=== PATIENT | male | born 1985 | race Caucasian/White ===

== ENCOUNTER 2019-03-21 13:50 | Day surgery (SDC) | payer OTHER ==
[2019-03-21] MEDS ORDERED: Ketorolac 30 MG/ML SDV IVPUSH ONE (14:14)
[2019-03-21] MEDS ORDERED: Sodium Chloride 0.9% 1,000 ML IV ONE (14:14)
--- NOTE | 2019-03-21 14:21 | EDM.PDOC ---
ED HPI GENERAL MEDICAL PROBLEM - General Chief Complaint: Abdominal Pain Stated Complaint: STOMACH PAIN Time Seen by Provider: 03/21/19 13:53 Source of Information: Reports: Patient History Limitations: Reports: No Limitations - History of Present Illness INITIAL COMMENTS - FREE TEXT/NARRATIVE: HISTORY AND PHYSICAL: History of present illness: Patient is a 33-year-old male presents to the ED today with concern of right lower quadrant pain that started late last night. Patient states his pain is a constant 6 out of 10 and is not worsening but also not improving. Patient states that the pain kept him up last night and he was unable to sleep. Patient states he has eaten some today but has noticed a decrease in appetite and has not been able to eat what he would normally eat. Patient expresses some nausea but states he has not vomited. Patient states his last bowel movement was yesterday and was normal for him. Patient denies any other symptoms or concerns at this time. Patient denies any abdominal surgery or any other health history. Patient denies fever, chills, chest pain, shortness of breath, or cough. Denies headache, neck stiff ness, change in vision, syncope, or near syncope. Denies vomiting, diarrhea, constipation, or dysuria. Has not noted any blood in urine or stool. Review of systems: As per history of present illness and below otherwise all systems reviewed and negative. Past medical history: As per history of present illness and as reviewed below otherwise noncontributory. Surgical history: As per history of present illness and as reviewed below otherwise noncontributory. Social history: See social history for further information Family history: As per history of present illness and as reviewed below otherwise noncontributory. Physical exam: General: Patient is alert, oriented, and in no acute distress. Patient laying comfortably on exam table. HEENT: Atraumatic, normocephalic, pupils equal and reactive bilaterally, negative for conjunctival pallor or scleral icterus, mucous membranes dry, TMs normal bilaterally, throat clear, neck supple, nontender, trachea midline. No drooling or trismus noted. No meningeal signs. No hot potato voice noted. Lungs: Clear to auscultation, breath sounds equal bilaterally, chest nontender. Heart: S1S2, regular rate and rhythm without overt murmur Abdomen: Soft, nondistended. Moderate to severe pain with palpation of the right lower quadrant with guarding. Positive rebound. Negative for masses or hepatosplenomegaly. Negative for costovertebral tenderness. Pelvis: Stable nontender. Genitourinary: Deferred. Rectal: Deferred. Skin: Intact, warm, dry. No lesions or rashes noted. Extremities: Atraumatic, negative for cords or calf pain. Neurovascular unremarkable. Neuro: Awake, alert, oriented. Cranial nerves II through XII unremarkable. Cerebellum unremarkable. Motor and sensory unremarkable throughout. Exam nonfocal. Notes: Dr. Owens, general surgery, consulted on patient and will take patient to the operating room. Voices understanding and is agreeable to plan of care. Denies any further questions or concerns at this time. Diagnostics: CBC, CMP, UA, lipase, abdominal pelvic CT Therapeutics: Toradol, saline Impression: Acute appendicitis Plan: 1. Transfer to the operating room to Dr. Owens. Definitive disposition and diagnosis as appropriate pending reevaluation and review of above. Right Lower Abdominal Pain Score (Numeric/FACES): 4 - Related Data Allergies Allergy/AdvReac Type Severity Reaction Status Date / Time Penicillins Allergy Rash Verified 03/21/19 14:01 Home Meds: Home Meds . [No Known Home Meds] 03/21/19 [History] Past Medical History - Past Health History Medical/Surgical History: Denies Medical/Surgical History - Infectious Disease History Infectious Disease History: Reports: None Social & Family History - Tobacco Use Smoking Status *Q: Never Smoker Second Hand Smoke Exposure: No - Caffeine Use Caffeine Use: Reports: Coffee - Recreational Drug Use Recreational Drug Use: No ED ROS GENERAL - Review of Systems Review Of Systems: ROS reveals no pertinent complaints other than HPI. ED EXAM, GENERAL - Physical Exam Exam: See Below (See dictation) Course - Vital Signs Last Recorded V/S: Last Vital Signs Temp 36.3 C 03/21/19 14:01 Pulse 76 03/21/19 16:05 Resp 18 03/21/19 16:05 BP 148/94 H 03/21/19 16:05 Pulse Ox 99 03/21/19 16:05 - Orders/Labs/Meds Orders: Active Orders 24 hr Category Date Time Status Lactated Ringers [Ringers, Lactated] 1,000 ml Med 03/21/19 16:45 Active IV ASDIRECTED cefTRIAXone [Rocephin] 1 gm Med 03/21/19 16:40 Active Sodium Chloride 0.9% [Normal Saline] 50 ml IV ONETIME Medication Orders Ceftriaxone Sodium 1 gm/ (Sodium Chloride) 50 mls @ 200 mls/hr IV ONETIME ONE Stop: 03/21/19 16:54 Lactated Ringer's (Ringers, Lactated) 1,000 mls @ 150 mls/hr IV ASDIRECTED [facility] Labs: Laboratory Tests 03/21/19 03/21/19 03/21/19 Range/Units 14:25 14:25 14:25 WBC 11.47 H (4.0-11.0) K/uL RBC 4.76 (4.50-5.90) M/uL Hgb 15.8 (13.0-17.0) g/dL Hct 44.5 (38.0-50.0) % MCV 93.5 (80.0-98.0) fL MCH 33.2 H (27.0-32.0) pg MCHC 35.5 (31.0-37.0) g/dL RDW Std Deviation 40.4 (28.0-62.0) fl RDW Coeff of [place] 12 (11.0-15.0) % Plt Count 170 (150-400) K/uL MPV 10.50 (7.40-12.00) fL Neut % (Auto) 67.6 (48.0-80.0) % Lymph % (Auto) 21.2 (16.0-40.0) % [place] % (Auto) 8.5 (0.0-15.0) % Eos % (Auto) 2.4 (0.0-7.0) % Baso % (Auto) 0.3 (0.0-1.5) % Neut # (Auto) 7.8 H (1.4-5.7) K/uL Lymph # (Auto) 2.4 (0.6-2.4) K/uL [place] # (Auto) 1.0 H (0.0-0.8) K/uL Eos # (Auto) 0.3 (0.0-0.7) K/uL Baso # (Auto) 0.0 (0.0-0.1) K/uL Sodium 141 (136-148) mmol/L Potassium 3.8 (3.5-5.1) mmol/L Chloride 104 (98-107) mmol/L Carbon Dioxide 28.3 (21.0-32.0) mmol/L BUN 14 (7.0-18.0) mg/dL Creatinine 1.4 H (0.8-1.3) mg/dL Est Cr Clr Drug Dosing 75.05 mL/min Estimated GFR (MDRD) 58.4 ml/min Glucose 100 (74-106) mg/dL Calcium 9.4 (8.5-10.1) mg/dL Total Bilirubin 0.8 (0.2-1.0) mg/dL AST 33 (15-37) IU/L ALT 90 H (14-63) IU/L Alkaline Phosphatase 64 (46-116) U/L Total Protein 8.4 H (6.4-8.2) g/dL Albumin 4.3 (3.4-5.0) g/dL Globulin 4.1 H (2.6-4.0) g/dL Albumin/Globulin Ratio 1.1 (0.9-1.6) Lipase 169 (73-393) U/L Urine Color YELLOW Urine Appearance CLEAR Urine pH 8.0 (5.0-8.0) Ur Specific [place] 1.010 (1.001-1.035) Urine Protein NEGATIVE (NEGATIVE) mg/dL Urine Glucose (UA) NEGATIVE (NEGATIVE) mg/dL Urine Ketones NEGATIVE (NEGATIVE) mg/dL Urine Occult Blood NEGATIVE (NEGATIVE) Urine Nitrite NEGATIVE (NEGATIVE) Urine Bilirubin NEGATIVE (NEGATIVE) Urine Urobilinogen 0.2 (<2.0) EU/dL Ur Leukocyte Esterase NEGATIVE (NEGATIVE) Meds: Medications Generic Name Dose Route Start Last Admin Trade Name Freq PRN Reason Stop Dose Admin Ceftriaxone Sodium 1 gm/ 50 mls @ 200 mls/hr 03/21/19 16:40 Sodium Chloride IV 03/21/19 16:54 ONETIME ONE Lactated Ringer's 1,000 mls @ 150 mls/hr 03/21/19 16:45 Ringers, Lactated IV ASDIRECTED CHRYSTAL Discontinued Medications Generic Name Dose Route Start Last Admin Trade Name Freq PRN Reason Stop Dose Admin Sodium Chloride 1,000 mls @ 999 mls/hr 03/21/19 14:14 03/21/19 14:31 Normal Saline IV 03/21/19 15:14 999 mls/hr BOLUS ONE Administration Iopamidol 100 ml 03/21/19 15:37 03/21/19 15:38 Isovue Multipack-370 (76%) IVPUSH 03/21/19 15:38 100 ml ONETIME ONE Administration Ketorolac Tromethamine 30 mg 03/21/19 14:14 03/21/19 14:31 Toradol IVPUSH 03/21/19 14:15 30 mg ONETIME ONE Administration Departure - Departure Time of Disposition: 16:47 Disposition: Still A Patient 30 Clinical Impression: Acute appendicitis Qualifiers: Acute appendicitis type: unspecified acute appendicitis type Qualified Code(s) : K35.80 - Unspecified acute appendicitis - Discharge Information
[2019-03-21 15:02] LABS: CARBON DIOXIDE,CO2 28.3 mmol/L (21.0-32.0); POTASSIUM,K 3.8 mmol/L (3.5-5.1)
[2019-03-21] MEDS ORDERED: Iopamidol 755 MG/ML 200 ML Multipack Bottle IVPUSH ONE (15:37)
--- NOTE | 2019-03-21 15:55 | CT ---
Indication: Right lower quadrant pain. Technique: Multiple contiguous axial images were obtained from the lung bases to the symphysis pubis after the intravenous administration of 100 milliliters Isovue 370. Please note that all CT scans at this facility use dose modulation, iterative reconstruction, and/or weight-based dosing when appropriate to reduce radiation dose to as low as reasonably achievable. Comparison: None Findings: The lung bases are clear. The heart is normal size. No pericardial effusion is identified. The liver, gallbladder, spleen, pancreas, adrenals, and kidneys are normal. No intrahepatic biliary ductal dilatation is identified. No hydronephrosis is seen. In the pelvis, the urinary bladder is normal. The prostate gland is normal. The small and large bowel are normal in caliber. The appendix is dilated, measuring 8 mm in size. Periappendiceal fat stranding is identified. No abscess or free air is identified. No free air or free fluid is identified within the abdomen or pelvis. The aorta is normal in caliber. No lytic or blastic lesions of the spine are seen. Impression: Findings consistent with appendicitis. No free air or abscess identified. These findings were discussed with Dr. Louie at the time of this dictation. Please note that all CT scans at this facility use dose modulation, iterative reconstruction, and/or weight-based dosing when appropriate to reduce radiation dose to as low as reasonably achievable. Dictated by Roro Edward MD @ Mar 21 2019 3:42PM Signed by Dr. Roro Edward @ Mar 21 2019 3:55PM
[2019-03-21] MEDS ORDERED: cefTRIAXone 1 GM in Sodium Chloride 0.9% 50 ML IV ONE (16:40)
[2019-03-21] MEDS ORDERED: Lactated Ringers 1,000 ML IV SCH ×2 (16:45→19:30)
[2019-03-21] MEDS ORDERED: cefTRIAXone 1 GM in Premix Bag 1 BAG IV ONE (16:47)
--- NOTE | 2019-03-21 17:07 | PCM.SN ---
- Free Text/Narrative Note: pt seen, chart reviewed, adm h/p dictated [id number]; acute appendicitis h/p and imaging studies agree, proceed w timely surgery; r/b d/w pt re bleeding/ infection/damage to nearby organs/postop course; pt concur and proceed; iv rocephin, lr 150, consent, and proceed w surgery;
[2019-03-21] MEDS ORDERED: Bupivacaine 25%/EPINEPHrine/PF 30 ML ONE (17:14)
--- NOTE | 2019-03-21 17:15 | PCM.PREANE ---
Preanesthetic Assessment - Procedure Proposed Procedure: Lap Appy - Anesthesia/Transfusion/Family Hx Anesthesia History: No Prior Anesthesia Family History of Anesthesia Reaction: No - Review of Systems General: No Symptoms Pulmonary: No Symptoms Cardiovascular: No Symptoms Gastrointestinal: No Symptoms Neurological: No Symptoms Other: Reports: None - Physical Assessment NPO Status Date: 03/21/19 NPO Status Time: 12:00 O2 Sat by Pulse Oximetry: 100 Respiratory Rate: 18 Blood Pressure: 125/67 Vital Signs: Last Vital Signs Temp 36.3 C 03/21/19 14:01 Pulse 64 03/21/19 17:09 Resp 18 03/21/19 17:09 BP 171/85 H 03/21/19 17:09 Pulse Ox 100 03/21/19 17:09 Height: 1.75 m Weight: 113.398 kg ASA Class: 1E Mental Status: Alert & Oriented x3 Dentition: Reports: Normal Dentition Thyro-Mental Finger Breadths: 3 Mouth Opening Finger Breadths: 3 ROM/Head Extension: Full Lungs: Clear to Auscultation Cardiovascular: Regular Rate - Lab Values: Laboratory Last Values WBC 11.47 K/uL (4.0-11.0) H 03/21/19 14:25 RBC 4.76 M/uL (4.50-5.90) 03/21/19 14:25 Hgb 15.8 g/dL (13.0-17.0) 03/21/19 14:25 Hct 44.5 % (38.0-50.0) 03/21/19 14:25 MCV 93.5 fL (80.0-98.0) 03/21/19 14:25 MCH 33.2 pg (27.0-32.0) H 03/21/19 14:25 MCHC 35.5 g/dL (31.0-37.0) 03/21/19 14:25 RDW Std Deviation 40.4 fl (28.0-62.0) 03/21/19 14:25 RDW Coeff of Bronson 12 % (11.0-15.0) 03/21/19 14:25 Plt Count 170 K/uL (150-400) 03/21/19 14:25 MPV 10.50 fL (7.40-12.00) 03/21/19 14:25 Neut % (Auto) 67.6 % (48.0-80.0) 03/21/19 14:25 Lymph % (Auto) 21.2 % (16.0-40.0) 03/21/19 14:25 [place] % (Auto) 8.5 % (0.0-15.0) 03/21/19 14:25 Eos % (Auto) 2.4 % (0.0-7.0) 03/21/19 14:25 Baso % (Auto) 0.3 % (0.0-1.5) 03/21/19 14:25 Neut # (Auto) 7.8 K/uL (1.4-5.7) H 03/21/19 14:25 Lymph # (Auto) 2.4 K/uL (0.6-2.4) 03/21/19 14:25 [place] # (Auto) 1.0 K/uL (0.0-0.8) H 03/21/19 14:25 Eos # (Auto) 0.3 K/uL (0.0-0.7) 03/21/19 14:25 Baso # (Auto) 0.0 K/uL (0.0-0.1) 03/21/19 14:25 Sodium 141 mmol/L (136-148) 03/21/19 14:25 Potassium 3.8 mmol/L (3.5-5.1) 03/21/19 14:25 Chloride 104 mmol/L (98-107) 03/21/19 14:25 Carbon Dioxide 28.3 mmol/L (21.0-32.0) 03/21/19 14:25 BUN 14 mg/dL (7.0-18.0) 03/21/19 14:25 Creatinine 1.4 mg/dL (0.8-1.3) H 03/21/19 14:25 Est Cr Clr Drug Dosing 75.05 mL/min 03/21/19 14:25 Estimated GFR (MDRD) 58.4 ml/min 03/21/19 14:25 Glucose 100 mg/dL (74-106) 03/21/19 14:25 Calcium 9.4 mg/dL (8.5-10.1) 03/21/19 14:25 Total Bilirubin 0.8 mg/dL (0.2-1.0) 03/21/19 14:25 AST 33 IU/L (15-37) 03/21/19 14:25 ALT 90 IU/L (14-63) H 03/21/19 14:25 Alkaline Phosphatase 64 U/L (46-116) 03/21/19 14:25 Total Protein 8.4 g/dL (6.4-8.2) H 03/21/19 14:25 Albumin 4.3 g/dL (3.4-5.0) 03/21/19 14:25 Globulin 4.1 g/dL (2.6-4.0) H 03/21/19 14:25 Albumin/Globulin Ratio 1.1 (0.9-1.6) 03/21/19 14:25 Lipase 169 U/L (73-393) 03/21/19 14:25 Urine Color YELLOW 03/21/19 14:25 Urine Appearance CLEAR 03/21/19 14:25 Urine pH 8.0 (5.0-8.0) 03/21/19 14:25 Ur Specific [place] 1.010 (1.001-1.035) 03/21/19 14:25 Urine Protein NEGATIVE mg/dL (NEGATIVE) 03/21/19 14:25 Urine Glucose (UA) NEGATIVE mg/dL (NEGATIVE) 03/21/19 14:25 Urine Ketones NEGATIVE mg/dL (NEGATIVE) 03/21/19 14:25 Urine Occult Blood NEGATIVE (NEGATIVE) 03/21/19 14:25 Urine Nitrite NEGATIVE (NEGATIVE) 03/21/19 14:25 Urine Bilirubin NEGATIVE (NEGATIVE) 03/21/19 14:25 Urine Urobilinogen 0.2 EU/dL (<2.0) 03/21/19 14:25 Ur Leukocyte Esterase NEGATIVE (NEGATIVE) 03/21/19 14:25 - Allergies Allergies/Adverse Reactions: Allergies Allergy/AdvReac Type Severity Reaction Status Date / Time Penicillins Allergy Rash Verified 03/21/19 14:01 - Acknowledgements Anesthesia Type Planned: General Anesthesia Pt an Appropriate Candidate for the Planned Anesthesia: Yes Alternatives and Risks of Anesthesia Discussed w Pt/Guardian: Yes Pt/Guardian Understands and Agrees with Anesthesia Plan: Yes PreAnesthesia Questionnaire - Past Health History Medical/Surgical History: Denies Medical/Surgical History - Infectious Disease History Infectious Disease History: Reports: None - SUBSTANCE USE Smoking Status *Q: Never Smoker Second Hand Smoke Exposure: No Recreational Drug Use History: No - HOME MEDS Home Medications: Home Meds . [No Known Home Meds] 03/21/19 [History] - CURRENT (IN HOUSE) MEDS Current Meds: Current Medications Lactated Ringer's (Ringers, Lactated) 1,000 mls @ 150 mls/hr IV ASDIRECTED CHRYSTAL Ceftriaxone Sodium/Dextrose 1 (gm/ Premix) 50 mls @ 100 mls/hr IV ONETIME ONE Stop: 03/21/19 17:16 Last Admin: 03/21/19 17:03 Dose: 100 mls/hr Discontinued Medications Sodium Chloride (Normal Saline) 1,000 mls @ 999 mls/hr IV BOLUS ONE Stop: 03/21/19 15:14 Last Admin: 03/21/19 14:31 Dose: 999 mls/hr Ceftriaxone Sodium/Dextrose (Rocephin In Dextrose,Iso-Osm 1 Gm/50 Ml) Confirm Administered Dose 50 mls @ as directed .ROUTE .STK-MED ONE Stop: 03/21/19 16:47 Last Admin: 03/21/19 16:55 Dose: Not Given Iopamidol (Isovue Multipack-370 (76%)) 100 ml IVPUSH ONETIME ONE Stop: 03/21/19 15:38 Last Admin: 03/21/19 15:38 Dose: 100 ml Ketorolac Tromethamine (Toradol) 30 mg IVPUSH ONETIME ONE Stop: 03/21/19 14:15 Last Admin: 03/21/19 14:31 Dose: 30 mg
[2019-03-21] MEDS ORDERED: Dexamethasone 4 MG/ML 5 ML MDV ONE (17:19)
[2019-03-21] MEDS ORDERED: Ondansetron 4 MG/2 ML SDV ONE (17:19)
[2019-03-21] MEDS ORDERED: Propofol 200 MG/20 ML SDV ONE (17:19)
[2019-03-21] MEDS ORDERED: Rocuronium 100 MG/10 ML Syringe ONE (17:19)
[2019-03-21] MEDS ORDERED: Ketorolac 30 MG/ML SDV ONE (17:19)
[2019-03-21] MEDS ORDERED: Lidocaine 2% 5 ML SDV ONE (17:19)
[2019-03-21] MEDS ORDERED: Midazolam 1 MG/ML 2 ML SDV ONE (17:19)
[2019-03-21] MEDS ORDERED: fentaNYL 250 MCG/5 ML SDV ONE (17:19)
[2019-03-21] MEDS ORDERED: Atropine 0.1 MG/ML 10 ML Syringe IVPUSH PRN ×2 (18:01)
[2019-03-21] MEDS ORDERED: Albuterol 0.083% 2.5 MG/3 ML Neb Soln NEB PRN (18:01)
[2019-03-21] MEDS ORDERED: Naloxone 0.4 MG/ML Syringe IVPUSH PRN (18:01)
[2019-03-21] MEDS ORDERED: fentaNYL 100 MCG/2 ML SDV IVPUSH PRN (18:01)
[2019-03-21] MEDS ORDERED: EPINEPHrine 1:10,000 1 MG/10 ML Syringe IVPUSH PRN (18:01)
[2019-03-21] MEDS ORDERED: 50% Dextrose in Water 50 ML Syringe IVPUSH PRN (18:01)
--- NOTE | 2019-03-21 19:07 | PCM.OPNOTE ---
- General Post-Op/Procedure Note Date of Surgery/Procedure: 03/21/19 Operative Procedure(s): lap appendectomy Findings: appendix w exudate at distal 1/2 cw appendicitis; gross perf not observed; [id number] Pre Op Diagnosis: acute appendicitis Post-Op Diagnosis: Same Anesthesia Technique: General ET Tube Primary Surgeon: Anibal Owens Pathology: sent Complications: None Condition: Fair
[2019-03-21] MEDS ORDERED: Acetaminophen/oxyCODONE 325-5 MG Tab PO PRN (19:21)
[2019-03-21] MEDS ORDERED: Morphine 4 MG/ML Syringe IV PRN (19:21)
--- NOTE | 2019-03-21 19:22 | PCM.POSTAN ---
POST ANESTHESIA ASSESSMENT - MENTAL STATUS Mental Status: Alert - VITAL SIGNS Pulse Rate: 98 SaO2: 98 Resp Rate: 26 Blood Pressure: 134/80 - RESPIRATORY Respiratory Status: Respiratory Rate WNL, Airway Patent, O2 Saturation Stable - CARDIOVASCULAR CV Status: Pulse Rate WNL, Blood Pressure Stable - GASTROINTESTINAL GI Status: No Symptoms - POST OP HYDRATION Hydration Status: Adequate & Stable
[2019-03-21] MEDS ORDERED: Ondansetron 4 MG/2 ML SDV IVPUSH PRN (19:23)
[2019-03-22] MEDS ORDERED: Acetaminophen/oxyCODONE 325-5 MG Tab PO ONE
--- NOTE | 2019-03-22 09:29 | PCM48HPAN ---
Post Anesthesia Note - EVALUATION WITHIN 48HRS OF ANESTHETIC Vital Signs in Normal Range: Yes Patient Participated in Evaluation: Yes Respiratory Function Stable: Yes Airway Patent: Yes Cardiovascular Function Stable: Yes Hydration Status Stable: Yes Pain Control Satisfactory: Yes Nausea and Vomiting Control Satisfactory: Yes Mental Status Recovered: Yes Pulse Rate: 98 Resp Rate: 16 Blood Pressure: 134/80 - COMMENTS/OBSERVATIONS Free Text/Narrative:: Patient comfortable at this time, no signs or symptoms of anesthesia related problems
--- NOTE | 2019-03-22 09:41 | CONS ---
DATE OF CONSULTATION: 03/21/2019 DATE OF : 1985 PRIMARY CARE PHYSICIAN: None PCP REASON FOR CONSULTATION: Consult was called from the ER by Dr. Louie. Concerning question, acute appendicitis. HISTORY OF PRESENT ILLNESS: The patient is a 33-year-old gentleman complaining of 18 hours' history of acute onset periumbilical pain, subsequently migrated to the right lower quadrant and sought help in the emergency room. CAT scan shows a dilated appendix and consistent with appendicitis. No free air or abscess identified. Surgery was then consulted. The pain, according to the patient, is 3 on a scale of 10 and denied prior episode. Denied fever, chills, nausea, vomiting, diarrhea, or trauma. The patient's last small food through the mouth was about 4 hours ago. ALLERGIES: Please refer to nursing for details. MEDICATIONS: Please refer to nursing for details. FAMILY HISTORY: Noncontributory. SOCIAL HISTORY: The patient denies tobacco use at all. Alcohol, the patient has a weekly alcohol drink. PAST SURGICAL HISTORY: No abdominal surgery. PAST MEDICAL HISTORY: Denied diabetes, MD, CVA, hypertension. PHYSICAL EXAMINATION: GENERAL: This is a very pleasant gentleman, even smiled to the doctor, in no acute distress. HEENT: Normocephalic, atraumatic. Sclerae anicteric. LUNGS: Clear to auscultation. HEART: Regular rate and rhythm. ABDOMEN: Soft, nondistended. No pulsating, tender midline abdominal structure. There is a very small umbilical hernia, nontender. Skin intact, about 5 mm. LABORATORY DATA: White count is 11. CAT scan, dilated appendix with periappendiceal fat stranding. IMPRESSION: Acute appendicitis. PLAN: Would benefit from timely surgical intervention. Risks and benefits discussed with the patient, and the patient concurred to proceed with surgery. We will give the patient some Rocephin IV 1 g and LR 150 and shave the patient and proceed to surgery. As always, thank you for the kind referral. HAYDER / CANDIDO /[id number]
--- NOTE | 2019-03-22 09:47 | OR ---
SURGEON: Anibal Owens MD DATE OF PROCEDURE: 03/21/2019 PREOPERATIVE DIAGNOSIS: Acute appendicitis. POSTOPERATIVE DIAGNOSIS: Acute appendicitis. PROCEDURE PERFORMED: Laparoscopic appendectomy. COMPLICATIONS: None. FINDINGS: Appendix is dilated with exudate at the distal one-half consistent with appendicitis and gross perforation not observed. At the end of surgery, a piece of Surgicel was inserted for hemostasis. DESCRIPTION OF PROCEDURE: The patient was taken to the operating room and placed in the supine position. Following induction of general endotracheal anesthesia, the patient's abdomen was prepped and draped in the sterile fashion. A time-out has been called. The patient was identified. The procedure was identified. The antibiotics were identified. The procedure then proceeded. The abdomen was prepped and draped in a standard fashion. After assessment of appropriate landmarks, a 12 millimeter trocar was inserted supraumbilically using Optiview and pneumoperitoneum was then achieved. This was followed with placement of 5 millimeter port in the right upper quadrant and another 5 millimeter port infraumbilically. The camera was inserted supraumbilical site and two laparoscopic [place] retractors were then inserted through the other two sites. Following the cecum, the appendix was located. The appendix was then lifted up, and using a GI stapler the appendix was amputated at the base. And using the GI stapler, the mesoappendix was then amputated. The appendix was retrieved by an endoscopic bag and sent for pathologist. This was then followed by re-insertion of the camera to examine the staple line, and hemostasis. The trocars were then removed. The umbilical site was closed with 2-0 Vicryl deep stitch and 4 -0 Vicryl and Dermabond; the other 2 5 mm port sites were closed with 4-0 Vicryl and Dermabond. The patient was then awakened, extubated, and transferred to the recovery room in hemodynamically stable condition. Prior to closing, sponge count and instrument count was correct. Dr. Owens was present throughout the whole procedure. As always, thank you for the kind referral. HAYDER / CANDIDO /[id number]
== END 2019-03-21 22:45 | disposition home or self-care (01) ==
LOC: MW.ED 13:50 → MW.SDS 16:49 → MW.MS 18:31 → MW.SDS 22:45
PROVIDERS: ATTEND Surgery
DX: K35.80 Unspecified acute appendicitis (principal)
CPT/HCPCS: 36415; 44970; 74177; 80053; 81003; 83690; 85025; 96361; 96365; 96375; 99285; A9270; C1776; J0330; J0696; J1100; J1885; J2001; J2250; J2405; J2704; J3010; J7040; J7120; Q9967; 00840; 88304; 99284

== ENCOUNTER 2020-07-05 11:48 | Emergency (ER) | payer OTHER ==
[2020-07-05] MEDS ORDERED: Sodium Chloride 0.9% 2.5 ML Syringe FLUSH PRN (11:52)
[2020-07-05] MEDS ORDERED: Sodium Chloride 0.9% 10 ML Syringe FLUSH PRN (11:52)
[2020-07-05] MEDS ORDERED: Magnesium Sulfate (4.06 MEQ/ML) 1 GM/2 ML SDV IV ONE (11:58)
--- NOTE | 2020-07-05 12:05 | EDM.PDOC ---
ED HPI GENERAL MEDICAL PROBLEM - General Stated Complaint: DIZZINESS Time Seen by Provider: 07/05/20 11:52 Source of Information: Reports: Patient History Limitations: Reports: No Limitations - History of Present Illness INITIAL COMMENTS - FREE TEXT/NARRATIVE: HISTORY AND PHYSICAL: History of present illness: Patient is a 35-year-old male who presents to the ED today with concern of dizziness and feeling anxious over the past 2 hours. Patient states that he was sitting at home when he felt the sudden "odd "sensation in best describes as feeling anxious. Patient does not describe chest pain or discomfort but does state he has a "odd "sensation of his chest. Patient states he checked his blood pressure at home due to this sensation and states that his blood pressure was 154/90 so came to the emergency room to be evaluated. Patient states that he has had high blood pressure readings in the past but has never been diagnosed with high blood pressure. Patient denies any health history or any family history of coronary artery disease. Patient denies any head injury or trauma. Patient denies fever, chills, chest pain, shortness of breath, or cough. Denies headache, neck stiff ness, change in vision, syncope, or near syncope. Denies nausea, vomiting, abdominal pain, diarrhea, constipation, or dysuria. Has not noted any blood in urine or stool. Patient has been eating and drinking appr opriately. Review of systems: As per history of present illness and below otherwise all systems reviewed and negative. Past medical history: As per history of present illness and as reviewed below otherwise noncontributory. Surgical history: As per history of present illness and as reviewed below otherwise noncontributory. Social history: See social history for further information Family history: As per history of present illness and as reviewed below otherwise noncontributory. Physical exam: General: Patient is alert, oriented, and in no acute distress. Patient laying comfortably on exam table. HEENT: Atraumatic, normocephalic, pupils equal and reactive bilaterally, negative for conjunctival pallor or scleral icterus, mucous membranes moist, TMs normal bilaterally, throat clear, neck supple, nontender, trachea midline. No drooling or trismus noted. No meningeal signs. No hot potato voice noted. Lungs: Clear to auscultation, breath sounds equal bilaterally, chest nontender. Heart: S1S2, regular rate and rhythm without overt murmur Abdomen: Soft, nondistended, nontender. Negative for masses or hepatosplenomegaly. Negative for costovertebral tenderness. Pelvis: Stable nontender. Genitourinary: Deferred. Rectal: Deferred. Skin: Intact, warm, dry. No lesions or rashes noted. Extremities: Atraumatic, negative for cords or calf pain. Neurovascular unremarkable. Neuro: Awake, alert, oriented. Cranial nerves II through XII unremarkable. Cerebellum unremarkable. Motor and sensory unremarkable throughout. Exam nonfocal. Notes: HEART score 1. Low risk Patient expresses resolution of the symptoms today in the ED. Signs and symptoms that would prompt return to the ED thoroughly discussed with patient. Discussed importance for follow-up with a primary care provider and cardiology. Voices understanding and is agreeable to plan of care. Denies any further questions or concerns at this time. Diagnostics: EKG, CBC, CMP, UA, CXR, Trop, Mg Therapeutics: Magnesium Prescription: None Impression: Dizziness, improved Prolonged QT, improved Plan: 1. Follow up with a primary care provider / director of business development as discussed. Return to the ED as needed and as discussed. Definitive disposition and diagnosis as appropriate pending reevaluation and review of above. Chest Pain Score (Numeric/FACES): 1 - Related Data Allergies Allergy/AdvReac Type Severity Reaction Status Date / Time Penicillins Allergy Rash Verified 03/21/19 14:01 Home Meds: Home Meds . [No Known Home Meds] 03/21/19 [History] Past Medical History - Past Health History Medical/Surgical History: Denies Medical/Surgical History - Infectious Disease History Infectious Disease History: Reports: None Social & Family History - Caffeine Use Caffeine Use: Reports: Coffee ED ROS GENERAL - Review of Systems Review Of Systems: Comprehensive ROS is negative, except as noted in HPI. ED EXAM, GENERAL - Physical Exam Exam: See Below (see dictation) Course - Vital Signs Last Recorded V/S: Last Vital Signs Temp 96.1 F L 07/05/20 11:48 Pulse 69 07/05/20 12:25 Resp 17 07/05/20 11:48 BP 139/88 07/05/20 12:25 Pulse Ox 98 07/05/20 12:25 - Orders/Labs/Meds Orders: Active Orders 24 hr Category Date Time Status Cardiac Monitoring [RC] . DIRECTED Care 07/05/20 11:52 Active EKG Documentation Completion [RC] STAT Care 07/05/20 11:53 Active EKG Documentation Completion [RC] STAT Care 07/05/20 13:28 Active Sodium Chloride 0.9% [Saline Flush] Med 07/05/20 11:52 Active 10 ml FLUSH ASDIRECTED PRN Sodium Chloride 0.9% [Saline Flush] Med 07/05/20 11:52 Active 2.5 ml FLUSH ASDIRECTED PRN Saline Lock Insert [OM.PC] Stat Oth 07/05/20 11:52 Ordered Medication Orders Sodium Chloride (Saline Flush) 2.5 ml FLUSH ASDIRECTED PRN PRN Reason: Keep Vein Open Last Admin: 07/05/20 12:25 Dose: 2.5 ml Documented by: SHEREE Sodium Chloride (Saline Flush) 10 ml FLUSH ASDIRECTED PRN PRN Reason: Keep Vein Open Last Admin: 07/05/20 12:26 Dose: 10 ml Documented by: SHEREE Labs: Laboratory Tests 07/05/20 07/05/20 07/05/20 Range/Units 11:54 11:54 12:31 WBC 7.76 (4.0-11.0) K/uL RBC 5.00 (4.50-5.90) M/uL Hgb 16.2 (13.0-17.0) g/dL Hct 48.1 (38.0-50.0) % MCV 96.2 (80.0-98.0) fL MCH 32.4 H (27.0-32.0) pg MCHC 33.7 (31.0-37.0) g/dL RDW Std Deviation 43.8 (28.0-62.0) fl RDW Coeff of [place] 13 (11.0-15.0) % Plt Count 173 (150-400) K/uL MPV 11.20 (7.40-12.00) fL Neut % (Auto) 49.7 (48.0-80.0) % Lymph % (Auto) 31.4 (16.0-40.0) % [place] % (Auto) 10.4 (0.0-15.0) % Eos % (Auto) 8.0 H (0.0-7.0) % Baso % (Auto) 0.5 (0.0-1.5) % Neut # (Auto) 3.9 (1.4-5.7) K/uL Lymph # (Auto) 2.4 (0.6-2.4) K/uL [place] # (Auto) 0.8 (0.0-0.8) K/uL Eos # (Auto) 0.6 (0.0-0.7) K/uL Baso # (Auto) 0.0 (0.0-0.1) K/uL Nucleated RBC % 0.0 /100WBC Nucleated RBCs # 0 K/uL Sodium 142 (136-148) mmol/L Potassium 3.6 (3.5-5.1) mmol/L Chloride 104 (98-107) mmol/L Carbon Dioxide 27.0 (21.0-32.0) mmol/L BUN 11 (7.0-18.0) mg/dL Creatinine 1.2 (0.8-1.3) mg/dL Est Cr Clr Drug Dosing 94.31 mL/min Estimated GFR (MDRD) > 60.0 ml/min Glucose 100 (74-106) mg/dL Calcium 9.1 (8.5-10.1) mg/dL Magnesium 2.0 (1.8-2.4) mg/dL Total Bilirubin 0.4 (0.2-1.0) mg/dL AST 25 (15-37) IU/L ALT 76 H (14-63) IU/L Alkaline Phosphatase 63 (46-116) U/L Troponin I < 0.050 (0.000-0.056) ng/mL Total Protein 8.6 H (6.4-8.2) g/dL Albumin 4.8 (3.4-5.0) g/dL Globulin 3.8 (2.6-4.0) g/dL Albumin/Globulin Ratio 1.3 (0.9-1.6) Urine Color YELLOW Urine Appearance CLEAR Urine pH 6.0 (5.0-8.0) Ur Specific [place] <= 1.005 (1.001-1.035) Urine Protein NEGATIVE (NEGATIVE) mg/dL Urine Glucose (UA) NEGATIVE (NEGATIVE) mg/dL Urine Ketones NEGATIVE (NEGATIVE) mg/dL Urine Occult Blood NEGATIVE (NEGATIVE) Urine Nitrite NEGATIVE (NEGATIVE) Urine Bilirubin NEGATIVE (NEGATIVE) Urine Urobilinogen 0.2 (<2.0) EU/dL Ur Leukocyte Esterase NEGATIVE (NEGATIVE) Meds: Medications Generic Name Dose Route Start Last Admin Trade Name Freq PRN Reason Stop Dose Admin Sodium Chloride 2.5 ml 07/05/20 11:52 07/05/20 12:25 Saline Flush FLUSH 2.5 ml ASDIRECTED PRN Administration Keep Vein Open Sodium Chloride 10 ml 07/05/20 11:52 07/05/20 12:26 Saline Flush FLUSH 10 ml ASDIRECTED PRN Administration Keep Vein Open Discontinued Medications Generic Name Dose Route Start Last Admin Trade Name Freq PRN Reason Stop Dose Admin Magnesium Sulfate 2 gm in 50 mls @ 50 mls/hr 07/05/20 12:15 07/05/20 12:25 Magnesium Sulfate In Water Premix IV 07/05/20 13:14 50 mls/hr ONETIME ONE Administration Departure - Departure Time of Disposition: 13:55 Disposition: Home, Self-Care 01 Clinical Impression: Dizziness, Prolonged QT interval - Discharge Information Instructions: Electrocardiogram, [id number], Dizziness, [id number] Referrals: PCP,None [Primary Care Provider] - Forms: ED Department Discharge Additional Instructions: The following information is given to patients seen in the emergency department who are being discharged to home. This information is to outline your options for follow-up care. We provide all patients seen in our emergency department with a follow-up referral. The need for follow-up, as well as the timing and circumstances, are variable depending upon the specifics of your emergency department visit. If you don't have a primary care physician on staff, we will provide you with a referral. We always advise you to contact your personal physician following an emergency department visit to inform them of the circumstance of the visit and for follow-up with them and/or the need for any referrals to a consulting specialist. The emergency department will also refer you to a specialist when appropriate. This referral assures that you have the opportunity for follow-up care with a specialist. All of these measure are taken in an effort to provide you with optimal care, which includes your follow-up. Under all circumstances we always encourage you to contact your private physician who remains a resource for coordinating your care. When calling for follow-up care, please make the office aware that this follow-up is from your recent emergency room visit. If for any reason you are refused follow-up, please contact the [facility] Emergency Department at and asked to speak to the emergency department charge nurse. [facility] Primary [facility] / Cardiology [address] [place] [address] [facility] [address] [place] [id number] 1. Follow up with a primary care provider / director of business development as discussed. Return to the ED as needed and as discussed. Sepsis Event Note (ED) - Focused Exam Vital Signs: Vital Signs Temp Pulse Resp BP Pulse Ox 07/05/20 12:25 69 139/88 98 07/05/20 12:10 75 147/88 H 98 07/05/20 11:48 96.1 F L 87 17 177/105 H 97 - My Orders Last 24 Hours: My Active Orders 07/05/20 11:52 Cardiac Monitoring [RC] . DIRECTED Sodium Chloride 0.9% [Saline Flush] 10 ml FLUSH ASDIRECTED PRN Sodium Chloride 0.9% [Saline Flush] 2.5 ml FLUSH ASDIRECTED PRN Saline Lock Insert [OM.PC] Stat 07/05/20 11:53 EKG Documentation Completion [RC] STAT 07/05/20 13:28 EKG Documentation Completion [RC] STAT - Assessment/Plan Last 24 Hours: My Active Orders 07/05/20 11:52 Cardiac Monitoring [RC] . DIRECTED Sodium Chloride 0.9% [Saline Flush] 10 ml FLUSH ASDIRECTED PRN Sodium Chloride 0.9% [Saline Flush] 2.5 ml FLUSH ASDIRECTED PRN Saline Lock Insert [OM.PC] Stat 07/05/20 11:53 EKG Documentation Completion [RC] STAT 07/05/20 13:28 EKG Documentation Completion [RC] STAT
[2020-07-05] MEDS ORDERED: Magnesium Sulfate/Water 2 GM/50 ML BAG IV ONE (12:15)
--- NOTE | 2020-07-05 12:21 | CR ---
INDICATION: dizziness TECHNIQUE: Chest 1 view. COMPARISON: None. FINDINGS: Cardiovascular and mediastinum: Heart size and vasculature are normal in caliber and appearance. Mediastinum is within normal limits. Lungs and pleural space: Lungs are clear. No sign of infiltrate or mass. No sign of pleural effusion. No pneumothorax. Bones and soft tissues: No significant findings. IMPRESSION: Unremarkable chest. Dictated by: Jonah Alexander MD @ 07/05/2020 12:20:39 (Electronically Signed)
[2020-07-05 12:44] LABS: BLOOD UREA NITROGEN,BUN 11 mg/dL (7.0-18.0); CHLORIDE,CL 104 mmol/L (98-107); GLUCOSE RANDOM 100 mg/dL (74-106); POTASSIUM,K 3.6 mmol/L (3.5-5.1); SODIUM,NA 142 mmol/L (136-148)
--- NOTE | 2020-07-06 07:34 | PCM.SN.2 ---
#2 Interpretation EKG Date: 07/05/20 Time: 13:44 Rhythm: NSR Rate (Beats/Min): 72 [place]: Normal P-Wave: Present QRS: Normal ST-T: Normal QT: Normal Comparison: No Change (from today) EKG Interpretation Comments: Normal sinus rhythm with non specific T wave inversion Qtc:400
--- NOTE | 2020-07-06 07:39 | PCM.SN.2 ---
#1 Interpretation EKG Date: 07/05/20 Time: 11:50 Rhythm: NSR Rate (Beats/Min): 82 [place]: Normal P-Wave: Present QRS: Normal ST-T: Normal QT: Normal Comparison: NA - No Prior EKG EKG Interpretation Comments: Normal Sinus Rhythm with non specific T wave inversion and prolonged QT Qtc: 519
== END 2020-07-05 14:08 | disposition home or self-care (01) ==
LOC: MW.ED 11:48
DX: R42 Dizziness and giddiness (principal); R94.31 Abnormal electrocardiogram [ECG] [EKG]; Z88.0 Allergy status to penicillin
CPT/HCPCS: 36415; 71045; 80053; 81003; 83735; 84484; 85025; 93005; 96365; 99284; J3475; 93010

== ENCOUNTER 2023-04-13 06:16 | Emergency (ER) | payer OTHER ==
[2023-04-13] MEDS ORDERED: Albuterol/Ipratropium 3.0-0.5 MG/3 ML Neb Soln NEB ONE (07:04)
== END 2023-04-13 07:20 | disposition home or self-care (01) ==
LOC: MW.ED 06:16
DX: J06.9 Acute upper respiratory infection, unspecified (principal); Z88.0 Allergy status to penicillin
CPT/HCPCS: 71046; 71046-26; 99283; 99284

== ENCOUNTER 2023-04-19 14:05 | Emergency (ER) | payer OTHER ==
[2023-04-19] MEDS ORDERED: Sodium Chloride 0.9% 2.5 ML Syringe FLUSH PRN (14:33)
[2023-04-19] MEDS ORDERED: Sodium Chloride 0.9% 10 ML Syringe FLUSH PRN (14:33)
[2023-04-19] MEDS ORDERED: Sodium Chloride 0.9% 1,000 ML IV STA ×2 (14:36→15:56)
[2023-04-19 15:10] LABS: BASOPHILS PERCENT AUTO 0.5 % (0.0-1.5); EOSINOPHILS ABSOLUTE AUTO 0.2 K/uL (0.0-0.7); EOSINOPHILS PERCENT AUTO 3.7 % (0.0-7.0); HEMATOCRIT 48.9 % (38.0-50.0); LYMPHOCYTES ABSOLUTE AUTO 1.9 K/uL (0.6-2.4); LYMPHOCYTES PERCENT AUTO 28.9 % (16.0-40.0); MEAN CORPUSCULAR HEMOGLOBIN 31.7 pg (27.0-32.0); MEAN CORPUSCULAR HGB CONC 34.8 g/dL (31.0-37.0); MEAN CORPUSCULAR VOLUME 91.2 fL (80.0-98.0); MONOCYTES ABSOLUTE AUTO 0.7 K/uL (0.0-0.8); MONOCYTES PERCENT AUTO 11.1 % (0.0-15.0); NEUTROPHILS ABSOLUTE AUTO 3.6 K/uL (1.4-5.7); NEUTROPHILS PERCENT AUTO 55.8 % (48.0-80.0); PLATELET COUNT,PLT 175 K/uL (150-400); RED BLOOD CELL COUNT 5.36 M/uL (4.50-5.90); WHITE BLOOD CELL COUNT,WBC 6.41 K/uL (4.0-11.0)
[2023-04-19 15:12] LABS: APPEARANCE,URINE CLEAR; BILIRUBIN,URINE NEGATIVE (NEGATIVE); COLOR,URINE YELLOW; GLUCOSE,URINE NEGATIVE (NEGATIVE); KETONES,URINE NEGATIVE (NEGATIVE); LEUKOCYTE ESTERASE,URINE NEGATIVE (NEGATIVE); NITRITE,URINE NEGATIVE (NEGATIVE); OCCULT BLOOD,URINE NEGATIVE (NEGATIVE); PROTEIN,URINE NEGATIVE (NEGATIVE); UROBILINOGEN,URINE 0.2 EU/dL (<2.0)
[2023-04-19 15:40] LABS: A/G RATIO 1.1 (0.9-1.6); ALBUMIN 4.1 g/dL (3.4-5.0); BILIRUBIN TOTAL 0.4 mg/dL (0.2-1.0); CALCIUM 8.7 mg/dL (8.5-10.1); CARBON DIOXIDE,CO2 25.9 mmol/L (21.0-32.0); CREATININE 1.5 mg/dL (0.8-1.3); EST CRCL DRUG DOSING (CG) 66.77 mL/min; MAGNESIUM 1.9 mg/dL (1.8-2.4); POTASSIUM,K 3.8 mmol/L (3.5-5.1); PROTEIN TOTAL,TP 7.8 g/dL (6.4-8.2)
[2023-04-19] MEDS ORDERED: Iopamidol 755 MG/ML 500 ML Multipack Bottle IVPUSH STA (16:15)
== END 2023-04-19 18:56 | disposition home or self-care (01) ==
LOC: MW.ED 14:05
DX: R05.3 Chronic cough (principal); Z88.0 Allergy status to penicillin; Z72.0 Tobacco use
CPT/HCPCS: 36415; 71260; 80053; 81003; 83690; 83735; 84484; 85025; 93005; 96360; 96361; 99284; J3490; J7030; Q9967; 93010

== ENCOUNTER 2024-01-15 18:04 | Emergency (ER) | payer OTHER | END 2024-01-15 20:28 | disposition home or self-care (01) | LOC: MW.ED 18:04 | DX: M79.661 Pain in right lower leg (principal); Z75.8 Other problems related to medical facilities and other health care; Z88.0 Allergy status to penicillin; Z79.899 Other long term (current) drug therapy | CPT/HCPCS: 93971-26-RT; 93971-RT; 99283 ==

== ENCOUNTER 2024-10-29 17:24 | Emergency (ER) | payer OTHER | END 2024-10-29 20:14 | disposition left against medical advice (07) | LOC: MW.ED 17:24 | DX: Z53.21 Procedure and treatment not carried out due to patient leaving prior to being seen by health care provider (principal) ==

== ENCOUNTER 2024-11-02 11:38 | Emergency (ER) | payer OTHER ==
[2024-11-02] MEDS ORDERED: Sodium Chloride 0.9% 2.5 ML Syringe FLUSH PRN (12:00)
[2024-11-02] MEDS ORDERED: Sodium Chloride 0.9% 10 ML Syringe FLUSH PRN (12:00)
[2024-11-02] MEDS: Sodium Chloride 0.9% 1,000 ML IV ONE (12:12)
[2024-11-02] MEDS: Aspirin 81 MG Tab.Chew PO ONE (12:12)
[2024-11-02 12:19] LABS: BASOPHILS ABSOLUTE AUTO 0.06 K/uL (0.00-0.20); BASOPHILS PERCENT AUTO 0.8 % (0.0-1.0); EOSINOPHILS ABSOLUTE AUTO 0.34 K/uL (0.00-0.45); EOSINOPHILS PERCENT AUTO 4.7 % (0.0-6.0); HEMOGLOBIN 18.3 g/dL (14.0-18.0); IMMATURE GRAN ABSOLUTE AUTO 0.02 K/uL (0.00-0.05); IMMATURE GRAN PERCENT AUTO 0.3 % (0.0-0.4); LYMPHOCYTES ABSOLUTE AUTO 2.09 K/uL (1.00-4.80); LYMPHOCYTES PERCENT AUTO 28.6 % (24.0-44.0); MEAN CORPUSCULAR HEMOGLOBIN 32.8 pg (28.0-32.0); MEAN CORPUSCULAR HGB CONC 35.2 g/dL (32.0-36.0); MEAN CORPUSCULAR VOLUME 93.2 fL (83.0-99.0); MEAN PLATELET VOLUME 10.5 fL (9.4-12.4); MONOCYTES ABSOLUTE AUTO 0.91 K/uL (0.00-0.80); MONOCYTES PERCENT AUTO 12.5 % (0.0-8.0); NEUTROPHILS ABSOLUTE AUTO 3.88 K/uL (1.80-7.70); NEUTROPHILS PERCENT AUTO 53.1 % (41.0-71.0); PLATELET COUNT,PLT 178 K/uL (150-400); RED BLOOD CELL COUNT 5.58 M/uL (4.52-5.90)
[2024-11-02 12:24] LABS: APPEARANCE,URINE CLEAR; BILIRUBIN,URINE NEGATIVE (NEGATIVE); COLOR,URINE YELLOW; GLUCOSE,URINE NEGATIVE (NEGATIVE); KETONES,URINE NEGATIVE (NEGATIVE); LEUKOCYTE ESTERASE,URINE NEGATIVE (NEGATIVE); NITRITE,URINE NEGATIVE (NEGATIVE); OCCULT BLOOD,URINE NEGATIVE (NEGATIVE); PH,URINE 5.5 (5.0-8.0); PROTEIN,URINE NEGATIVE (NEGATIVE); UROBILINOGEN,URINE 0.2 EU/dL (<2.0)
[2024-11-02 12:28] LABS: INR 1.09 (0.86-1.11); PTT,PARTIAL THROMBOPLSTIN TIME 26.6 SEC (23.9-30.7)
[2024-11-02 12:37] LABS: A/G RATIO 1.3 (0.9-1.6); ALANINE AMINOTRANSFERASE,ALT 56 IU/L (14-63); ALBUMIN 4.8 g/dL (3.4-5.0); ALKALINE PHOSPHATASE 57 U/L (46-116); ASPARTATE AMNIOTRANSFERASE,AST 22 IU/L (15-37); BILIRUBIN TOTAL 0.7 mg/dL (0.2-1.0); BLOOD UREA NITROGEN,BUN 28 mg/dL (7.0-18.0); CALCIUM 9.3 mg/dL (8.5-10.1); CARBON DIOXIDE,CO2 27.2 mmol/L (21.0-32.0); CHLORIDE,CL 98 mmol/L (98-107); CREATININE 1.4 mg/dL (0.8-1.3); EST CRCL DRUG DOSING (CG) 70.84 mL/min; GLUCOSE RANDOM 95 mg/dL (74-106); LIPASE 62 U/L (16-77); MAGNESIUM 2.3 mg/dL (1.8-2.4); POTASSIUM,K 4.1 mmol/L (3.5-5.1); PROTEIN TOTAL,TP 8.6 g/dL (6.4-8.2); SODIUM,NA 134 mmol/L (136-148)
[2024-11-02 12:45] LABS: ESTIMATED GFR 66 mL/min (>60); PRO B-TYPE NATRIUR PEPT,BNPPRO < 5 pg/mL (0-125)
== END 2024-11-02 15:46 | disposition home or self-care (01) ==
LOC: MW.ED 11:38
DX: R07.89 Other chest pain (principal); I10 Essential (primary) hypertension; Z90.49 Acquired absence of other specified parts of digestive tract; Z88.0 Allergy status to penicillin; Z79.899 Other long term (current) drug therapy; Z75.8 Other problems related to medical facilities and other health care
CPT/HCPCS: 36415; 70450; 71046; 80053; 81003; 83690; 83735; 83880; 84484; 85025; 85610; 85730; 87428; 93005; 96360; 99285; A9270; J7030; 93010; 99284